=== PATIENT | female | born 1965 | race Caucasian/White ===

== ENCOUNTER → 2017-02-23 | Outpatient (CLI) | payer OTHER ==
--- NOTE | 2017-02-24 09:01 | MM ---
Reason for exam: screening (asymptomatic). Last mammogram was performed 2 years and 4 months ago. History: Patient is postmenopausal and had first child at age 30. Physical Findings: A clinical breast exam by your physician is recommended on an annual basis and results should be correlated with mammographic findings. MG Screening Mammo w CAD Bilateral CC and MLO view(s) were taken. Prior study comparison: November 06, 2014, bilateral MG screening mammo w CAD. The breast tissue is heterogeneously dense. This may lower the sensitivity of mammography. Benign calcifications. There is no discrete abnormality. No significant changes when compared with prior studies. ASSESSMENT: Benign, BI-RAD 2 RECOMMENDATION: Routine screening mammogram of both breasts in 1 year.
== END | disposition home or self-care (01) ==
LOC: RADMAMWWP 13:16
PROVIDERS: ATTEND Family Medicine
DX: Z12.31 Encounter for screening mammogram for malignant neoplasm of breast (principal)

== ENCOUNTER → 2020-10-15 | Outpatient (CLI) | payer BC, OTHER | END | disposition home or self-care (01) | LOC: LABWHC1 11:21 | PROVIDERS: ATTEND Nurse Practitioner | DX: Z20.828 Contact with and (suspected) exposure to other viral communicable diseases (principal) | CPT/HCPCS: U0003; C9803 ==

== ENCOUNTER → 2020-12-11 | Outpatient (CLI) | payer BC ==
--- NOTE | 2020-12-12 13:38 | MM ---
Reason for exam: screening (asymptomatic). Last mammogram was performed 3 years and 10 months ago. History: Patient is postmenopausal and had first child at age 30. Physical Findings: A clinical breast exam by your physician is recommended on an annual basis and results should be correlated with mammographic findings. MG Screening Mammo w CAD Bilateral CC and MLO view(s) were taken. Prior study comparison: February 23, 2017, bilateral MG screening mammo w CAD. November 06, 2014, bilateral MG screening mammo w CAD. The breast tissue is heterogeneously dense. This may lower the sensitivity of mammography. Finding: There are typically benign round, diffuse/scattered and grouped calcifications in both breasts. Asymmetric breast tissue left breast, stable. There is no discrete abnormality. ASSESSMENT: Benign, BI-RAD 2 RECOMMENDATION: Routine screening mammogram of both breasts in 1 year.
== END | disposition home or self-care (01) ==
LOC: RADMAMWWP 15:48
PROVIDERS: ATTEND Family Medicine
DX: Z12.31 Encounter for screening mammogram for malignant neoplasm of breast (principal)
CPT/HCPCS: 77067

== ENCOUNTER → 2022-05-18 | Outpatient (CLI) | payer BC ==
--- NOTE | 2022-05-19 13:33 | MM ---
Reason for Exam: Screening (asymptomatic). Last mammogram was performed 1 year(s) and 5 month(s) ago. Patient History: Menarche at age 10. First Full-Term at age 30. Late child-bearing (after 30). Postmenopausal. Risk Values: Rachael 5 year model risk: 1.8%. NCI Lifetime model risk: 10.5%. Prior Study Comparison: 11/06/2014 Bilateral Screening Mammogram, [facility]. 02/23/2017 Bilateral Screening Mammogram, [facility]. 12/11/2020 Bilateral Screening Mammogram, [facility]. Tissue Density: The breast tissue is heterogeneously dense. This may lower the sensitivity of mammography. Findings: Analyzed By CAD. There is a stable focal asymmetry with a couple of benign-appearing calcifications within the posterior left mediolateral oblique view. No suspicious groups of microcalcifications, spiculated or lobular masses, architectural distortion or other secondary signs of malignancy are mammographically apparent. Overall Assessment: Benign, BI-RAD 2 Management: Screening Mammogram of both breasts in 1 year. A negative mammogram report should not preclude additional follow up of suspicious palpable abnormalities. Patient should continue monthly self breast exam. A clinical breast exam by your physician is recommended on an annual basis and results should be correlated with mammographic findings. Electronically signed and approved by: Joey Claudio D.O. Radiologis
== END | disposition home or self-care (01) ==
LOC: RADMAMWWP 13:18
PROVIDERS: ATTEND Family Medicine
DX: Z12.31 Encounter for screening mammogram for malignant neoplasm of breast (principal); R92.1 Mammographic calcification found on diagnostic imaging of breast; Z78.0 Asymptomatic menopausal state
CPT/HCPCS: 77067

== ENCOUNTER 2024-04-28 13:58 | Day surgery (SDC) | payer BC ==
[2024-04-26 11:42] VITALS: BMI 27.8
[2024-04-28] MEDS: IV FLUID CONTINUATION 1,000 ML IV ONE (14:41)
[2024-04-28] MEDS: LACTATED RINGERS 1,000 ML IV SCH (14:47)
[2024-04-28 15:06] VITALS: TEMP 97
[2024-04-28] MEDS ORDERED: PROPOFOL 10 MG/ML 20 ML VIAL IV ONE (15:59)
--- NOTE | 2024-04-28 16:16 | P.PCN ---
Date of Procedure: 04/28/24 Procedure(s) Performed: BRIEF HISTORY: Patient is a 58-year-old pleasant female scheduled for an elective colonoscopy as a part of the patient by history of colon polyps. Last colonoscopy was 8 years ago. PROCEDURE PERFORMED: Colonoscopy with snare polypectomy PREOPERATIVE DIAGNOSIS: History of colon polyp. IV sedation per Anesthesia. PROCEDURE: After informed consent was obtained, the patient, was brought into the endoscopy unit. IV sedation was administered by Anesthesia under continuous monitoring. Digital rectal examination was normal. Initially the Olympus CF-160 flexible video colonoscope was then inserted in the rectum, gradually advanced into the cecum without any difficulty. Careful examination was performed as the scope was gradually being withdrawn. Ileocecal valve and the appendiceal orifice were visualized and appeared normal. Prep was excellent. Mucosa of the cecum, ascending colon, transverse colon, descending colon, normal. In the sigmoid there was a 7 mm polyp that was removed by cold snare polypectomy. Rest of the sigmoid colon, and rectum appeared normal. Retroflexion was performed in the rectum and no lesions were seen. The patient tolerated the procedure well. IMPRESSION: 7 millimeters sigmoid colon polyp status post cold snare polypectomy Rest of the colon appeared normal RECOMMENDATIONS: Findings of this examination were discussed with the patient present family. She was advised to follow-up with the biopsy results. If the biopsy reveals adenoma she can have repeat colonoscopy in 5 years..
[2024-04-28] MEDS: LABETALOL 5 MG/ML VIAL MDV IVP ONE (16:51)
[2024-04-28] MEDS: hydrALAZINE HCL 20 MG/ML 1 ML VIAL IVP PRN (17:29)
[2024-04-28] MEDS: hydrALAZINE HCL 20 MG/ML 1 ML VIAL IVP ONE (17:30)
[2024-04-28 18:15] VITALS: BP 156/93; PULSE 83; RESP 16
== END 2024-04-28 18:11 | disposition home or self-care (01) ==
LOC: ORWHC2ENDO 13:58
PROVIDERS: ATTEND Internal Medicine Gastroenterology
DX: K63.5 Polyp of colon (principal); E78.5 Hyperlipidemia, unspecified; J44.9 Chronic obstructive pulmonary disease, unspecified; F17.200 Nicotine dependence, unspecified, uncomplicated; Z86.010 Personal history of colon polyps; Z79.51 Long term (current) use of inhaled steroids; Z79.899 Other long term (current) drug therapy
CPT/HCPCS: 45385; J0360; J2704; J1920; 88305

== ENCOUNTER 2025-01-22 18:21 | Emergency (ER) | payer BC, OTHER ==
[2025-01-22 18:33] VITALS: TEMP 98.9
--- NOTE | 2025-01-22 19:35 | ED ---
Fall HPI - General Chief Complaint: Fall Stated Complaint: fall, [facility] Time Seen by Provider: 01/22/25 18:23 Source: patient, EMS, RN notes reviewed Mode of arrival: EMS Limitations: no limitations - History of Present Illness Initial Comments: This is a 59-year-old female who presents to the emergency department for a fall. Patient was at work and tripped on the carpet, causing her to fall. Denies hitting her head or taking any blood thinners. States that she injured her right knee and right shoulder. She was given Toradol en route by EMS with some improvement in pain. MD Complaint: fall - Related Data Home Medications Medication Instructions Recorded Confirmed Albuterol Inhaler [Ventolin 1 - 2 puff INHALATION Q4HR PRN 11/27/14 04/28/24 Inhaler] Atorvastatin [Lipitor] 20 mg PO HS 04/26/24 04/28/24 Cholecalciferol [Vitamin D3 (125 125 mcg PO HS 04/26/24 04/28/24 Mcg = 5000 Iu)] Multivitamins, Thera [Multivitamin 1 tab PO HS 04/26/24 04/28/24 (formulary)] Previous Rx's Medication Instructions Recorded Ketorolac [Toradol] 10 mg PO Q6HR PRN #15 tab 01/22/25 Allergies Allergy/AdvReac Type Severity Reaction Status Date / Time No Known Allergies Allergy Verified 01/22/25 18:33 Review of Systems ROS Statement: Those systems with pertinent positive or pertinent negative responses have been documented in the HPI. ROS Other: All systems not noted in ROS Statement are negative. Past Medical History Past Medical History: COPD, Hyperlipidemia Additional Past Medical History / Comment(s): HX PNEUMOTHORAX 2009, UNDIAG. COPD History of Any Multi-Drug Resistant Organisms: None Reported Past Surgical History: Tonsillectomy, Tubal Ligation Additional Past Surgical History / Comment(s): CHEST TUBE FOR PNEUMOTHORAX, EYE SX CHILD, COLONOSCOPY Past Anesthesia/Blood Transfusion Reactions: Postoperative Nausea & Vomiting (PONV) Past Psychological History: No Psychological Hx Reported Smoking Status: Current every day smoker - Past Family History Mother Family Medical History: No Reported History General Exam Limitations: no limitations General appearance: alert, in no apparent distress Head exam: Present: atraumatic, normocephalic, normal inspection Respiratory exam: Present: normal lung sounds bilaterally. Absent: respiratory distress, wheezes, rales, rhonchi, stridor Cardiovascular Exam: Present: regular rate, normal rhythm Extremities exam: Present: other (Tenderness to palpation of the right knee with mild overlying swelling. Range of motion limited by pain. 2+ DP and PT pulses. Mild tenderness of the right shoulder. Range of motion limited by pain. 2+ radial pulses) Neurological exam: Present: alert, oriented X3, CN II-XII intact Psychiatric exam: Present: normal affect, normal mood Skin exam: Present: warm, dry, intact, normal color. Absent: rash Course Vital Signs 01/22/25 18:31 Temperature 98.9 F Pulse Rate 83 Respiratory 16 Rate Blood Pressure 160/92 O2 Sat by Pulse 96 Oximetry Medical Decision Making - Medical Decision Making This is a 59 year old female who presents to the emergency department for a fall. Was pt. sent in by a medical professional or institution? @ -No Did you speak to anyone other than the patient for history? @ -No Did you review nursing and triage notes? @ -Yes, and I agree, it is accurate with regards to the patient's symptoms. Were old charts reviewed? @ -No Differential Diagnosis? @ -Differential Musculoskeletal Muscular strain, contusion, ligament sprain, fracture, arthritis, septic arthritis, bursitis, cellulitis, muscle spasm, nerve compression, DVT, arterial occlusion, herpes zoster, electrolyte abnormality, tumor.... This is not meant to be in all inclusive list EKG interpreted by me (3pts min.)? @ -Not obtained X-rays interpreted by me (1pt min.)? @ -X-ray of the right knee and right shoulder obtained. My interpretation identifies no acute fractures. CT interpreted by me (1pt min.)? @ -Not obtained U/S interpreted by me (1pt. min.)? @ -Not obtained What testing was considered but not performed? (CT, X-rays, U/S, labs)? Why? @ -None What meds were considered but not given? Why? @ -None Did you discuss the management of the patient with other professionals? @ -No Did you reconcile home meds? @ -No Was smoking cessation discussed for >3mins.? @ -No Was critical care preformed (if so, how long)? @ -No Were there social determinants of health that impacted care today? How? (Homelessness, low income, unemployed, alcoholism, drug addiction, transportation, low edu. Level, literacy, decrease access to med. care, group home, rehab)? @ -No Was there de-escalation of care discussed even if they declined? (Discuss DNR or withdrawal of care, Hospice)? @ -No What co-morbidities impacted this encounter? (DM, HTN, Smoking, COPD, CAD, Cancer, CVA, Hep., AIDS, mental health diagnosis, sleep apnea, morbid obesity)? @ -None Was patient admitted / discharged? @ -Discharged. X-ray of the right knee and right shoulder obtained revealing no acute process. Pain was managed in the emergency department. Knee im mobilizer applied to be used as needed. Toradol prescribed for further pain management. Advised ice and elevation as well. Patient discharged home in stable condition. Case discussed with ED attending Dr. Gillis. Return precautions reviewed in depth, the patient is instructed to return to the emergency department with any new, worsening, or concerning symptoms. Patient verbalized understanding. Undiagnosed new problem with uncertain prognosis? @ -None Drug Therapy requiring intensive monitoring for toxicity (Heparin, Nitro, Insulin, Cardizem)? @ -None Were any procedures done? @ -None Diagnosis/symptom? @ -Fall, right knee contusion, right shoulder contusion Acute, or Chronic, or Acute on Chronic? @ -Acute Uncomplicated (without systemic symptoms) or Complicated (systemic symptoms)? @ -Uncomplicated Side effects of treatment? @ -None Exacerbation, Progression, or Severe Exacerbation] @ -Not applicable Poses a threat to life or bodily function? @ -No - Radiology Data Radiology results: report reviewed, image reviewed Disposition Clinical Impression: Fall, Contusion of right knee, Right shoulder injury Disposition: HOME SELF-CARE Instructions (If sedation given, give patient instructions): Fall Prevention (ED), Knee Immobilizer (ED) Additional Instructions: Return to the emergency department with any new, worsening, or concerning symptoms. Take the Toradol with Tylenol as needed for pain relief. If you choose to take the Toradol, do not take any other anti-inflammatories such as ibuprofen, take one or the other. Apply ice and elevate the painful areas for the next couple of days as well. Follow up with your primary care provider in 1-2 days. Prescriptions: Ketorolac [Toradol] 10 mg PO Q6HR PRN #15 tab PRN Reason: Pain Is patient prescribed a controlled substance at d/c from ED?: No Referrals: Steph Chaparro MD [Primary Care Provider] - 1-2 days Time of Disposition: 23:16
[2025-01-22] MEDS: MORPHINE SULFATE 4 MG/ML SYRINGE IM STA (20:00)
[2025-01-22] MEDS: KETOROLAC 15 MG/ML 1 ML VIAL IM STA (21:57)
[2025-01-22] MEDS: ACETAMINOPHEN TAB 500 MG TAB PO STA (21:58)
--- NOTE | 2025-01-22 23:04 | XR ---
EXAMINATION TYPE: XR shoulder complete RT DATE OF EXAM: 01/22/2025 7:19 PM CLINICAL INDICATION:Female, 59 years old with history of Fall; PHH, pain COMPARISON: None. TECHNIQUE: XR shoulder complete RT; examined in AP, internally rotated and scapular Y projections. FINDINGS: No evidence of acute osseous pathology, joint dislocation, or soft tissue swelling. Degenerative haris nges of the right shoulder. External items are seen overlying the upper chest. The remaining portions of the visualized chest are unremarkable. IMPRESSION: No acute osseous pathology. [facility], , 01/22/2025 11:02 PM
--- NOTE | 2025-01-22 23:06 | XR ---
EXAMINATION TYPE: XR knee complete RT DATE OF EXAM: 01/22/2025 7:19 PM CLINICAL INDICATION:Female, 59 years old with history of Fall; PHH, pain COMPARISON: None. TECHNIQUE: XR knee complete RT; examined in Frontal, lateral and oblique projections. FINDINGS: No evidence of any acute osseous pathology, soft tissue swelling, or joint effusion is no shira. Minimal degenerative changes present IMPRESSION: No acute osseous pathology. [facility], , 01/22/2025 11:04 PM
[2025-01-23 00:06] VITALS: BP 149/90; PULSE 81; RESP 18
== END 2025-01-23 00:06 | disposition home or self-care (01) ==
LOC: EC 18:21
DX: S80.01XA Contusion of right knee, initial encounter (principal); S49.91XA Unspecified injury of right shoulder and upper arm, initial encounter; F17.200 Nicotine dependence, unspecified, uncomplicated; W19.XXXA Unspecified fall, initial encounter
CPT/HCPCS: 73030; 73562; 99284; 96374; L1830; J1885

== ENCOUNTER → 2025-03-28 | Outpatient (CLI) | payer BC ==
--- NOTE | 2025-03-28 09:21 | MM ---
Reason for Exam: Screening (asymptomatic). Last mammogram was performed 2 year(s) and 10 month(s) ago. Patient History: Menarche at age 10. First Full-Term at age 30. Late child-bearing (after 30). Postmenopausal. Risk Values: Rachael 5 year model risk: 2.0%. NCI Lifetime model risk: 9.7%. Prior Study Comparison: 02/23/2017 Bilateral Screening Mammogram, [facility]. 12/11/2020 Bilateral Screening Mammogram, [facility]. 05/18/2022 Bilateral MG screening mammo w CAD, [facility]. Tissue Density: The breasts are heterogeneously dense, which may obscure small masses. Findings: Analyzed By CAD. There are tiny benign round calcifications bilaterally redemonstrated. Benign-appearing vascular calcification in bilateral breasts is noted. Benign-appearing left axillary lymph nodes are redemonstrated. There is no suspicious new group of microcalcifications or new suspicious mass in either breast. Overall Assessment: Benign, BI-RAD 2 Management: Screening Mammogram of both breasts in 1 year. . Patient should continue monthly self-breast exams. A clinical breast exam by your physician is recommended on an annual basis. This exam should not preclude additional follow-up of suspicious palpable abnormalities. Note on Rachael scores and lifetime risk: 1. A Rachael score greater than 3% is considered moderate risk. If this is the case, consider specialist referral to assess eligibility for a risk reducing agent. 2. If overall lifetime risk for the development of breast cancer is 20% or higher, the patient may qualify for future screening with alternating mammogram and breast MRI. [facility], , 03/28/2025 9:18 AM. Electronically signed and approved by: Bartolome Shen M.D.
== END | disposition home or self-care (01) ==
LOC: RADMAMWWP 08:57
PROVIDERS: ATTEND Family Medicine
DX: Z12.31 Encounter for screening mammogram for malignant neoplasm of breast (principal); R92.333 Mammographic heterogeneous density, bilateral breasts; Z78.0 Asymptomatic menopausal state
CPT/HCPCS: 77067

== ENCOUNTER 2025-05-20 07:03 | Inpatient (IN) | payer BC ==
--- NOTE | 2025-05-20 07:51 | ED ---
General Adult HPI - General Chief complaint: Neuro Symptoms/Deficit Stated complaint: Leg/Arm Numbness Time Seen by Provider: 05/20/25 07:20 Source: patient, RN notes reviewed, old records reviewed Mode of arrival: ambulatory - History of Present Illness Initial comments: This is a 59-year-old female who presents to the emergency department stating that she is a drinker and smoker. Patient states she quit smoking about 2 weeks ago and has noticed some tingling in her fingers both hands and both feet. Patient states she may have not noticed in the past because she has been a drinker. Patient denies any weakness. Patient denies being off balance. Patient denies any fever chills or cough. Patient denies chest pain or difficulty breathing. Patient denies any abdominal pain patient has nausea vomiting diarrhea. Patient states she did see her physician back in October and was told her B12 levels were low and that she needed to follow-up with that but she has not yet followed up. Patient states she is still working and having no problems holding onto things or doing her job at work - Related Data Home Medications Medication Instructions Recorded Confirmed Albuterol Inhaler [Ventolin 2 puff INHALATION RT-Q4H PRN 11/27/14 05/20/25 Inhaler] Atorvastatin [Lipitor] 20 mg PO HS 04/26/24 05/20/25 Cholecalciferol [Vitamin D3 (125 125 mcg PO HS 04/26/24 05/20/25 Mcg = 5000 Iu)] Multivitamins, Thera [Multivitamin 1 tab PO DAILY 04/26/24 05/20/25 (formulary)] Budesonide/Formoterol Fumarate 2 puff INHALATION RT-BID 05/20/25 05/20/25 [Symbicort 160-4.5 Mcg Inhaler] Furosemide [Lasix] 20 mg PO DAILY PRN 05/20/25 05/20/25 Allergies Allergy/AdvReac Type Severity Reaction Status Date / Time No Known Allergies Allergy Verified 05/20/25 09:44 Review of Systems ROS Statement: Those systems with pertinent positive or pertinent negative responses have been documented in the HPI. ROS Other: All systems not noted in ROS Statement are negative. Past Medical History Past Medical History: COPD, Hyperlipidemia Additional Past Medical History / Comment(s): HX PNEUMOTHORAX 2010, UNDIAG. COPD History of Any Multi-Drug Resistant Organisms: None Reported Past Surgical History: Tonsillectomy, Tubal Ligation Additional Past Surgical History / Comment(s): CHEST TUBE FOR PNEUMOTHORAX, EYE SX CHILD, COLONOSCOPY Past Anesthesia/Blood Transfusion Reactions: Postoperative Nausea & Vomiting (PONV) Past Psychological History: No Psychological Hx Reported Smoking Status: Current every day smoker - Past Family History Mother Family Medical History: No Reported History General Exam - General Exam Comments Initial Comments: GENERAL: Patient is well-developed and well-nourished. Patient is nontoxic and well- hydrated and is in no acute distress. ENT: Neck is soft and supple. No significant lymphadenopathy is noted. Oropharynx is clear. Moist mucous membranes. Neck has full range of motion without eliciting any pain. EYES: The sclera were anicteric and conjunctiva were pink and moist. Extraocular movements were intact and pupils were equal round and reactive to light. Eyelids were unremarkable. PULMONARY: Unlabored respirations. Good breath sounds bilaterally. No audible rales rhonchi or wheezing was noted. CARDIOVASCULAR: There is a regular rate and rhythm without any murmurs gallops or rubs. ABDOMEN: Soft and nontender with normal bowel sounds. No palpable organomegaly was noted. There is no palpable pulsatile mass. SKIN: Skin is clear with no lesions or rashes and otherwise unremarkable. NEUROLOGIC: Patient is alert and oriented x3. Cranial nerves II through XII are grossly intact. Motor and sensory are also intact. Normal speech, volume and content. Patient has an NIH of 0 MUSCULOSKELETAL: Normal extremities with adequate strength and full range of motion. No lower extremity swelling or edema. No calf tenderness. LYMPHATICS: No significant lymphadenopathy is noted PSYCHIATRIC: Normal psychiatric evaluation. Course Vital Signs 05/20/25 05/20/25 05/20/25 07:19 08:15 09:44 Temperature 97.9 F Pulse Rate 92 77 Respiratory 22 17 19 Rate Blood Pressure 131/84 129/88 O2 Sat by Pulse 93 L 95 Oximetry Medical Decision Making - Medical Decision Making EKG is interpreted by myself. EKG shows a sinus rhythm at 75 bpm [place] of 136 QRS is 98 QT interval is 364 QTc is 392. Patient's EKG shows no ST segment ovation or depression. Was pt. sent in by a medical professional or institution (, PA, SENIOR NETWORK SECURITY ENGINEER, urgent care, hospital, or fdc...) When possible be specific @ -No Did you speak to anyone other than the patient for history (EMS, parent, family, police, friend...)? What history was obtained from this source @ -No Did you review nursing and triage notes (agree or disagree)? Why? @ -I reviewed and agree with nursing and triage notes Were old charts reviewed (outside hosp., previous admission, EMS record, old EKG, old radiological studies, urgent care reports/EKG's, fdc records)? Report findings @ -No old charts were reviewed Differential Diagnosis? @ -Paresthesias, electrolyte abnormality, CVA, this is not an all-inclusive list EKG interpreted by me (3pts min.). @ -As above X-rays interpreted by me (1pt min.). @ -None done CT interpreted by me (1pt min.). @ -None done U/S interpreted by me (1pt. min.). @ -None done What testing was considered but not performed or refused? (CT, X-rays, U/S, labs)? Why? @ -None What meds were considered but not given or refused? Why? @ -None Did you discuss the management of the patient with other professionals (prof essionals i.e. , PA, SENIOR NETWORK SECURITY ENGINEER, lab, RT, psych nurse, social work professor, ground defence officer, teacher, military source operations officer, onsite case manager)? Give summary @ -I spoke with Dr. Weston he agreed to admit the patient admit the patient wrote admitting orders Was smoking cessation discussed for >3mins.? @ -No Was critical care preformed (if so, how long)? @ -35 minutes Were there social determinants of health that impacted care today? How? (Homelessness, low income, unemployed, alcoholism, drug addiction, transportation, low edu. Level, literacy, decrease access to med. care, intermediate, rehab)? @ -No Was there de-escalation of care discussed even if they declined (Discuss DNR or withdrawal of care, Hospice)? DNR status @ -No What co-morbidities impacted this encounter? (DM, HTN, Smoking, COPD, CAD, Cancer, CVA, ARF, Chemo, Hep., AIDS, mental health diagnosis, sleep apnea, morbid obesity)? @ -None Was patient admitted / discharged? Hospital course, mention meds given and route, prescriptions, significant lab abnormalities, going to OR and other pertinent info. @ -Patient's sodium was 128 she did receive a bolus of normal saline of 500 cc. Patient also had a potassium of 2.0 patient did receive oral potassium as well as IV potassium. Patient also had a magnesium of 1.2 and did receive 2 g of magnesium sulfate. I spoke with Dr. Weston he agreed admit the patient admit the patient wrote admitting orders Undiagnosed new problem with uncertain prognosis? @ -No Drug Therapy requiring intensive monitoring for toxicity (Heparin, Nitro, Insulin, Cardizem)? @ -No Were any procedures done? @ -No Diagnosis/symptom? @ -Hyponatremia Acute, or Chronic, or Acute on Chronic? @ -Acute Uncomplicated (without systemic symptoms) or Complicated (systemic symptoms)? @ -Complicated Side effects of treatment? @ -No Exacerbation, Progression, or Severe Exacerbation? @ -No Poses a threat to life or bodily function? How? (Chest pain, USA, ND, pneumonia, PE, COPD, DKA, ARF, appy, cholecystitis, CVA, Diverticulitis, Homicidal, Suici yuly, threat to staff... and all critical care pts) @ -Yes this could lead to weakness and possible seizures Diagnosis/symptom? @ -Hypomagnesemia Acute, or Chronic, or Acute on Chronic? @ -Acute Uncomplicated (without systemic symptoms) or Complicated (systemic symptoms)? @ -Complicated Side effects of treatment? @ -None Exacerbation, Progression, or Severe Exacerbation] @ -No Poses a threat to life or bodily function? @ -No Diagnosis/symptom? @ -Hypokalemia Acute, or Chronic, or Acute on Chronic? @ -Acute Uncomplicated (without systemic symptoms) or Complicated (systemic symptoms)? @ -Complicated Side effects of treatment? @ -None Exacerbation, Progression, or Severe Exacerbation] @ -No Poses a threat to life or bodily function? @ -Yes this can lead to arrhythmias and - Lab Data Result diagrams: 05/20/25 08:03 05/20/25 08:03 Lab Results 05/20/25 05/20/25 Range/Units 08:03 08:03 WBC 4.94 (4.50-10.00) 10*3/uL RBC 3.28 L (4.10-5.20) 10*6/uL Hgb 12.2 (12.0-15.0) g/dL Hct 33.5 L (37.2-46.3) % MCV 102.1 H (80.0-97.0) fL MCH 37.2 H (27.0-32.0) pg MCHC 36.4 (32.0-37.0) g/dL Plt Count 174 (140-440) 10*3/uL MPV 10.4 (9.5-12.2) fL Immature Gran % (Auto) 0.2 % Neutrophils % 66.0 % Lymphocytes % 22.3 % Monocytes % 10.1 % Eosinophils % 1.0 % Basophils % 0.4 % Immature Gran # 0.01 (0.00-0.04) 10*3/uL Neutrophils # 3.26 (1.80-7.70) 10*3/uL Lymphocytes # 1.10 (0.90-5.00) 10*3/uL Monocytes # 0.50 (0.20-1.00) 10*3/uL Eosinophils # 0.05 (0.04-0.35) 10*3/uL Basophils # 0.02 (0.00-0.10) 10*3/uL Manual Slide Review Performed Sodium 128 L (137-145) mmol/L Potassium 2.0 L* (3.5-5.1) mmol/L Chloride 88 L (98-107) mmol/L Carbon Dioxide 35 H (22-30) mmol/L Anion Gap 5 mmol/L BUN 10 (7-17) mg/dL Creatinine 0.80 (0.52-1.04) mg/dL Est GFR (CKD-EPI)AfAm >90 (>60 ml/min/1.73 sqM) Est GFR (CKD-EPI)NonAf 80 (>60 ml/min/1.73 sqM) Glucose 111 H (74-99) mg/dL Calcium 7.3 L (8.4-10.2) mg/dL Magnesium 1.2 L (1.6-2.3) mg/dL Total Bilirubin 0.6 (0.2-1.3) mg/dL AST 115 H (14-36) U/L ALT 36 H (4-34) U/L Alkaline Phosphatase 91 (38-126) U/L Total Protein 4.7 L (6.3-8.2) g/dL Albumin 2.6 L (3.5-5.0) g/dL Disposition Clinical Impression: Hyponatremia, Hypomagnesemia, Hypokalemia Disposition: ADMITTED IP TO THIS [facility] Time of Disposition: 09:07
[2025-05-20 08:17] LABS: Basophils # (A) 0.02 10*3/uL (0.00-0.10); Basophils % (A) 0.4 %; Eosinophils # (A) 0.05 10*3/uL (0.04-0.35); HCT 33.5 % (37.2-46.3); HGB 12.2 g/dL (12.0-15.0); Lymphocytes % (A) 22.3 %; MCH 37.2 pg (27.0-32.0); MCHC 36.4 g/dL (32.0-37.0); MCV 102.1 fL (80.0-97.0); Mean Platelet Volume 10.4 fL (9.5-12.2); Monocytes % (A) 10.1 %; Neutrophils # (A) 3.26 10*3/uL (1.80-7.70); Platelet Count 174 10*3/uL (140-440); RBC 3.28 10*6/uL (4.10-5.20); RDW 14.1 % (11.5-14.5); WBC 4.94 10*3/uL (4.50-10.00)
[2025-05-20 08:24] LABS: ALT 36 U/L (4-34); AST 115 U/L (14-36); African American GFR (CKD) >90 (>60 ml/min/1.73 sqM); Albumin 2.6 g/dL (3.5-5.0); Alkaline Phosphatase 91 U/L (38-126); Anion Gap 5 mmol/L; Blood Urea Nitrogen 10 mg/dL (7-17); Calcium 7.3 mg/dL (8.4-10.2); Carbon Dioxide 35 mmol/L (22-30); Chloride 88 mmol/L (98-107); Glucose 111 mg/dL (74-99); Magnesium 1.2 mg/dL (1.6-2.3); Non-African American GFR(CKD) 80 (>60 ml/min/1.73 sqM); Sodium 128 mmol/L (137-145); Total Bilirubin 0.6 mg/dL (0.2-1.3); Total Protein 4.7 g/dL (6.3-8.2)
[2025-05-20] MEDS: SODIUM CHLORIDE 0.9% 1,000 ML IV ONE (09:28)
[2025-05-20] MEDS: POTASSIUM CHLORIDE 20 MEQ in WATER FOR INJECTION 1 100ML.BAG IVPB STA (09:28)
[2025-05-20] MEDS: SODIUM CHLORIDE 0.9% 500 ML 500 ML IV ONE (09:28)
[2025-05-20] MEDS: POTASSIUM CHLORIDE ER 20 MEQ TAB.ER PO STA ×3 (09:29→23:26)
[2025-05-20] MEDS: MAGNESIUM SULFATE-D5W PMX 1 GM in DEXTROSE/WATER 1 100ML.BAG IVPB SCH (09:42)
[2025-05-20 10:22] LABS: ALT 36 U/L (4-34); AST 120 U/L (14-36); African American GFR (CKD) >90 (>60 ml/min/1.73 sqM); Albumin 2.7 g/dL (3.5-5.0); Alcohol <10 mg/dL; Alkaline Phosphatase 87 U/L (38-126); Anion Gap 5 mmol/L; Blood Urea Nitrogen 9 mg/dL (7-17); Calcium 7.2 mg/dL (8.4-10.2); Carbon Dioxide 39 mmol/L (22-30); Chloride 88 mmol/L (98-107); Glucose 88 mg/dL (74-99); Non-African American GFR(CKD) 84 (>60 ml/min/1.73 sqM); Sodium 132 mmol/L (137-145); Total Bilirubin 0.7 mg/dL (0.2-1.3); Total Protein 4.9 g/dL (6.3-8.2)
[2025-05-20 10:29] LABS: Potassium 2.2 mmol/L (3.5-5.1)
[2025-05-20] MEDS ORDERED: ALBUTEROL NEBULIZED 2.5 MG/3 ML INHALATION PRN (10:34)
--- NOTE | 2025-05-20 10:36 | P.HPIM ---
History of Present Illness H&P Date: 05/20/25 Dolores Verma is a 59-year-old female patient of Dr. Soria who presented to the ER with concerns of tingling in bilateral hands and feet. Patient has known history of EtOH and in which she states she drank 1 beer per day but stopped 2 weeks ago. Denies any other neurological symptoms. Denies any recent illness. Lab work completed in ER showing sodium level of 128, potassium 2.0, creatinine 0.80, bun 10, magnesium 1.2, calcium 7.3. AST 36, ALT 115 serum alcohol negative. Current vital signs temp 97.9, heart rate 92, respiratory rate 22, blood pressure 131/84 with pulse ox 95% on room air. At this time patient will be admitted magnesium and potassium replace per protocol continue IV fluids. Nephrology services will be consulted. Repeat labs. Patient denies chest pain or shortness of breath. Patient denies nausea vomiting or diarrhea. Patient denies any urinary burning or frequency Review of Systems Please refer to HPI otherwise unremarkable Past Medical History Past Medical History: COPD, Hyperlipidemia Additional Past Medical History / Comment(s): HX PNEUMOTHORAX 2009, UNDIAG. COPD History of Any Multi-Drug Resistant Organisms: None Reported Past Surgical History: Tonsillectomy, Tubal Ligation Additional Past Surgical History / Comment(s): CHEST TUBE FOR PNEUMOTHORAX, EYE SX CHILD, COLONOSCOPY Past Anesthesia/Blood Transfusion Reactions: Postoperative Nausea & Vomiting (PONV) Past Psychological History: No Psychological Hx Reported Smoking Status: Current every day smoker - Past Family History Mother Family Medical History: No Reported History Medications and Allergies Home Medications Medication Instructions Recorded Confirmed Type Albuterol Inhaler [Ventolin 2 puff INHALATION RT-Q4H PRN 11/27/14 05/20/25 History Inhaler] Atorvastatin [Lipitor] 20 mg PO HS 04/26/24 05/20/25 History Cholecalciferol [Vitamin D3 (125 125 mcg PO HS 04/26/24 05/20/25 History Mcg = 5000 Iu)] Multivitamins, Thera [Multivitamin 1 tab PO DAILY 04/26/24 05/20/25 History (formulary)] Budesonide/Formoterol Fumarate 2 puff INHALATION RT-BID 05/20/25 05/20/25 History [Symbicort 160-4.5 Mcg Inhaler] Furosemide [Lasix] 20 mg PO DAILY PRN 05/20/25 05/20/25 History Allergies Allergy/AdvReac Type Severity Reaction Status Date / Time No Known Allergies Allergy Verified 05/20/25 09:44 Physical Exam Vitals: Vital Signs Temp Pulse Resp BP Pulse Ox 05/20/25 09:44 77 19 129/88 95 05/20/25 08:15 17 05/20/25 07:19 97.9 F 92 22 131/84 93 L Intake and Output 05/19/25 05/20/25 05/20/25 22:59 06:59 14:59 Other: Weight 62.596 kg Head normocephalic Neck supple Lungs clear to auscultation bilaterally no wheezing or crackles Heart regular rate and rhythm S1-S2, no rub or gallop Abdomen is soft nontender nondistended positive bowel sounds no hep atosplenomegaly Extremities no edema Neuro alert and orientated to 3 Results CBC & Chem 7: 05/20/25 08:03 05/20/25 08:03 Labs: Abnormal Lab Results - Last 24 Hours (Table) 05/20/25 05/20/25 Range/Units 08:03 08:03 RBC 3.28 L (4.10-5.20) 10*6/uL Hct 33.5 L (37.2-46.3) % MCV 102.1 H (80.0-97.0) fL MCH 37.2 H (27.0-32.0) pg Sodium 128 L (137-145) mmol/L Potassium 2.0 L* (3.5-5.1) mmol/L Chloride 88 L (98-107) mmol/L Carbon Dioxide 35 H (22-30) mmol/L Glucose 111 H (74-99) mg/dL Calcium 7.3 L (8.4-10.2) mg/dL Magnesium 1.2 L (1.6-2.3) mg/dL AST 115 H (14-36) U/L ALT 36 H (4-34) U/L Total Protein 4.7 L (6.3-8.2) g/dL Albumin 2.6 L (3.5-5.0) g/dL Assessment and Plan Assessment: Numbness to bilateral hands likely secondary from electrolyte imbalance Hyponatremia Hypokalemia Hypomagnesemia EtOH history. Patient reports she used to drink 1. Beer per day but quit 2 weeks ago Ongoing nicotine dependence. Patient educated greater than 3 minutes on the importance of complete smoking sensation Elevated liver enzymes History of COPD no exacerbation at this time History of hyperlipidemia DVT prophylaxis Lovenox. GI prophylax Protonix nephrology services consulted Continue electrolyte replacement Repeat labs ordered Time with Patient: Greater than 30 (Greater than 60% of the total time spent in counseling and coordination of care)
--- NOTE | 2025-05-20 12:48 | P.NPCON ---
History of Present Illness - Reason for Consult hypokalemia - History of Present Illness Reason for consultation: Electrolyte imbalance History of present illness: Patient is a 59-year-old female seen in renal consultation for electrolyte imbalance. Patient states she actively smokes daily but quit drinking alcohol about 2 weeks ago. About 3 days ago she developed numbness and tingling in her extremities, mostly in her hands and came to the hospital for further evaluation. She denies vomiting or diarrhea. States oral intake has been fair. Patient states she was started on Lasix recently due to edema in the lower extremities and has taken 5 doses so far. She admits to good urine output. Denies any gross hematuria or dysuria. No chest pain or shortness of breath. Denies use of nonsteroidals. Potassium was noted to be 2.0 on admission and repeat was 2.2. Magnesium was low at 1.2. Serum alcohol level was negative. She denies use of any IV drugs. Denies history of diabetes or coronary artery disease. Vital signs are stable. General: T no acute distress. HEENT: Head exam is unremarkable. LUNGS: No audible rhonchi or wheezes. HEART: Rate and Rhythm are regular. ABDOMEN: Nontender. EXTREMITITES: No edema. Past Medical History Past Medical History: COPD, Hyperlipidemia Additional Past Medical History / Comment(s): HX PNEUMOTHORAX 2009, UNDIAG. COPD History of Any Multi-Drug Resistant Organisms: None Reported Past Surgical History: Tonsillectomy, Tubal Ligation Additional Past Surgical History / Comment(s): CHEST TUBE FOR PNEUMOTHORAX, EYE SX CHILD, COLONOSCOPY Past Anesthesia/Blood Transfusion Reactions: Postoperative Nausea & Vomiting (PONV) Past Psychological History: No Psychological Hx Reported Smoking Status: Current every day smoker - Past Family History Mother Family Medical History: No Reported History Medications and Allergies Home Medications Medication Instructions Recorded Confirmed Type Albuterol Inhaler [Ventolin 2 puff INHALATION RT-Q4H PRN 11/27/14 05/20/25 History Inhaler] Atorvastatin [Lipitor] 20 mg PO HS 04/26/24 05/20/25 History Cholecalciferol [Vitamin D3 (125 125 mcg PO HS 04/26/24 05/20/25 History Mcg = 5000 Iu)] Multivitamins, Thera [Multivitamin 1 tab PO DAILY 04/26/24 05/20/25 History (formulary)] Budesonide/Formoterol Fumarate 2 puff INHALATION RT-BID 05/20/25 05/20/25 History [Symbicort 160-4.5 Mcg Inhaler] Furosemide [Lasix] 20 mg PO DAILY PRN 05/20/25 05/20/25 History Allergies Allergy/AdvReac Type Severity Reaction Status Date / Time No Known Allergies Allergy Verified 05/20/25 09:44 Physical Exam Vitals: Vital Signs Temp Pulse Resp BP Pulse Ox 05/20/25 09:44 77 19 129/88 95 05/20/25 08:15 17 05/20/25 07:19 97.9 F 92 22 131/84 93 L Intake and Output 05/19/25 05/20/25 05/20/25 22:59 06:59 14:59 Other: Weight 62.596 kg Results - Lab Results Most recent lab results Calcium 7.2 mg/dL (8.4-10.2) L 05/20/25 09:44 Magnesium 1.2 mg/dL (1.6-2.3) L 05/20/25 08:03 05/20/25 08:03 05/20/25 09:44 Assessment and Plan Plan: Assessment: 1. Hypokalemia from recently started diuretics and hypomagnesemia. Furthermore patient has alkalotic and hypochloremic which will maintain the hypokalemia. 2. Hypomagnesemia from diuretic use. 3. Metabolic alkalosis from volume contraction. 4. Tobacco abuse. 5. Hypovolemic hyponatremia, better with fluids. Plan: Maintain normal saline. Magnesium being replaced. Replace over 6 to 8 hours. Potassium being replaced orally and via IV. Repeat potassium level this evening and continue replacing as needed. Hold diuretics. Thank you for the consultation. I will continue to follow the patient with you during her hospital stay.
[2025-05-20] MEDS: MAGNESIUM SULFATE-D5W PMX 1 GM in DEXTROSE/WATER 1 100ML.BAG IVPB ONE (13:08)
[2025-05-20] MEDS: POTASSIUM CHLORIDE 20 MEQ in WATER FOR INJECTION 1 100ML.BAG IVPB SCH (13:15)
[2025-05-20 13:41] LABS: ALT 35 U/L (4-34); AST 109 U/L (14-36); African American GFR (CKD) >90 (>60 ml/min/1.73 sqM); Albumin 2.3 g/dL (3.5-5.0); Alkaline Phosphatase 78 U/L (38-126); Anion Gap 6 mmol/L; Blood Urea Nitrogen 8 mg/dL (7-17); Calcium 7.2 mg/dL (8.4-10.2); Carbon Dioxide 32 mmol/L (22-30); Chloride 91 mmol/L (98-107); Glucose 106 mg/dL (74-99); Non-African American GFR(CKD) >90 (>60 ml/min/1.73 sqM); Sodium 129 mmol/L (137-145); Total Bilirubin 0.7 mg/dL (0.2-1.3); Total Protein 4.3 g/dL (6.3-8.2)
[2025-05-20 14:00] LABS: Potassium 2.7 mmol/L (3.5-5.1)
[2025-05-20 18:48] LABS: ALT 35 U/L (4-34); AST 118 U/L (14-36); African American GFR (CKD) >90 (>60 ml/min/1.73 sqM); Albumin 2.2 g/dL (3.5-5.0); Alkaline Phosphatase 81 U/L (38-126); Anion Gap 4 mmol/L; Blood Urea Nitrogen 7 mg/dL (7-17); Calcium 7.3 mg/dL (8.4-10.2); Carbon Dioxide 34 mmol/L (22-30); Chloride 93 mmol/L (98-107); Glucose 115 mg/dL (74-99); Non-African American GFR(CKD) >90 (>60 ml/min/1.73 sqM); Potassium 3.1 mmol/L (3.5-5.1); Sodium 131 mmol/L (137-145); Total Bilirubin 0.5 mg/dL (0.2-1.3); Total Protein 4.3 g/dL (6.3-8.2)
[2025-05-20] MEDS: SYMBICORT 160-4.5 MCG INHALER INHALATION SCH (20:30)
[2025-05-20] MEDS: CHOLECALCIFEROL 125 MCG (5000 IU) TABLET PO SCH (20:41)
[2025-05-20] MEDS ORDERED: Potassium Replacement Protocol 1 EACH MISC MISCELLANE PRN (22:12)
[2025-05-21 06:43] LABS: Basophils # (A) 0.04 10*3/uL (0.00-0.10); Basophils % (A) 0.7 %; Eosinophils # (A) 0.12 10*3/uL (0.04-0.35); Eosinophils % (A) 2.1 %; HGB 11.4 g/dL (12.0-15.0); Lymphocytes # (A) 1.31 10*3/uL (0.90-5.00); MCH 36.2 pg (27.0-32.0); MCHC 33.5 g/dL (32.0-37.0); Mean Platelet Volume 10.5 fL (9.5-12.2); Monocytes # (A) 0.48 10*3/uL (0.20-1.00); Monocytes % (A) 8.4 %; Neutrophils # (A) 3.72 10*3/uL (1.80-7.70); Neutrophils % (A) 65.3 %; Platelet Count 163 10*3/uL (140-440); RBC 3.15 10*6/uL (4.10-5.20); RDW 14.5 % (11.5-14.5)
[2025-05-21 06:47] LABS: MCV 107.9 fL (80.0-97.0)
[2025-05-21 07:09] LABS: ALT 41 U/L (4-34); AST 141 U/L (14-36); African American GFR (CKD) >90 (>60 ml/min/1.73 sqM); Albumin 2.2 g/dL (3.5-5.0); Alkaline Phosphatase 83 U/L (38-126); Anion Gap 3 mmol/L; Blood Urea Nitrogen 7 mg/dL (7-17); Calcium 7.6 mg/dL (8.4-10.2); Carbon Dioxide 31 mmol/L (22-30); Chloride 99 mmol/L (98-107); Glucose 102 mg/dL (74-99); Magnesium 2.2 mg/dL (1.6-2.3); Non-African American GFR(CKD) >90 (>60 ml/min/1.73 sqM); Potassium 3.9 mmol/L (3.5-5.1); Sodium 133 mmol/L (137-145); Total Bilirubin 0.4 mg/dL (0.2-1.3); Total Protein 4.3 g/dL (6.3-8.2)
[2025-05-21] MEDS: ENOXAPARIN 40 MG/0.4 ML SYRINGE SQ SCH (08:21)
[2025-05-21] MEDS: NICOTINE 14MG/24HR PATCH TRANSDERM SCH (08:25)
[2025-05-21] MEDS: PANTOPRAZOLE 40 MG TABLET PO SCH (08:26)
[2025-05-21] MEDS: MULTIVITAMINS, THERA 1 EACH TAB PO SCH (16:58)
--- NOTE | 2025-05-21 17:41 | P.PN ---
Subjective Progress Note Date: 05/21/25 Dolores Verma is a 59-year-old female patient of Dr. Soria who presented to the ER with concerns of tingling in bilateral hands and feet. Patient has known history of EtOH and in which she states she drank 1 beer per day but stopped 2 weeks ago. Denies any other neurological symptoms. Denies any recent illness. Lab work completed in ER showing sodium level of 128, potassium 2.0, creatinine 0.80, bun 10, magnesium 1.2, calcium 7.3. AST 36, ALT 115 serum alcohol negative. Current vital signs temp 97.9, heart rate 92, respiratory rate 22, blood pressure 131/84 with pulse ox 95% on room air. At this time patient will be admitted magnesium and potassium replace per protocol continue IV fluids. Nephrology services will be consulted. Repeat labs. Patient denies chest pain or shortness of breath. Patient denies nausea vomiting or diarrhea. Patient denies any urinary burning or frequency On 05/21/2025 patient was seen and examined on the medical floor she is alert and oriented x 3 in no apparent distress she is still complaining of tingling in her hands and feet otherwise she denies any complaints there is no fever or chills no headache or dizziness no chest pain no shortness of breath no cough no nausea or vomiting no abdominal pain no diarrhea and no urinary symptoms on admission patient had severe electrolyte imbalance with potassium at 2 sodium 128 and magnesium 1.2. Electrolytes are being corrected possible discharge to home tomorrow Objective - Vital Signs Vital signs: Vital Signs Temp 97.9 F 05/20/25 07:19 Pulse 98 05/21/25 08:00 Resp 20 05/21/25 08:00 BP 129/94 05/21/25 08:00 Pulse Ox 91 L 05/21/25 08:00 FiO2 Intake & Output 05/20/25 05/21/25 05/21/25 18:59 06:59 18:59 Weight 62.596 kg - Exam In general patient is alert and oriented x 3 in no distress HEENT head normocephalic and atraumatic Neck is supple no JVD no goiter no lymphadenopathy no carotid bruit Chest examination is clear to auscultation no crackles no wheezing Cardiac exam reveals regular heart sounds S1 and S2 no gallops no murmurs Abdomen is soft nontender no organomegaly with normal bowel sounds Extremity exam reveals no edema no cyanosis or clubbing Neurological examination reveals no gross focal deficits - Labs CBC & Chem 7: 05/21/25 06:17 05/21/25 06:17 Labs: Abnormal Lab Results - Last 24 Hours (Table) 05/20/25 05/20/25 05/20/25 Range/Units 09:44 12:36 18:18 RBC (4.10-5.20) 10*6/uL Hgb (12.0-15.0) g/dL Hct (37.2-46.3) % MCV (80.0-97.0) fL MCH (27.0-32.0) pg Sodium 132 L 129 L 131 L (137-145) mmol/L Potassium 2.2 L* 2.7 L* 3.1 L (3.5-5.1) mmol/L Chloride 88 L 91 L 93 L (98-107) mmol/L Carbon Dioxide 39 H 32 H 34 H (22-30) mmol/L Glucose 106 H 115 H (74-99) mg/dL Calcium 7.2 L 7.2 L 7.3 L (8.4-10.2) mg/dL Magnesium (1.6-2.3) mg/dL AST 120 H 109 H 118 H (14-36) U/L ALT 36 H 35 H 35 H (4-34) U/L Total Protein 4.9 L 4.3 L 4.3 L (6.3-8.2) g/dL Albumin 2.7 L 2.3 L 2.2 L (3.5-5.0) g/dL 05/20/25 05/21/25 05/21/25 Range/Units 18:18 06:17 06:17 RBC 3.15 L (4.10-5.20) 10*6/uL Hgb 11.4 L (12.0-15.0) g/dL Hct 34.0 L (37.2-46.3) % MCV 107.9 H D (80.0-97.0) fL MCH 36.2 H (27.0-32.0) pg Sodium 133 L (137-145) mmol/L Potassium (3.5-5.1) mmol/L Chloride (98-107) mmol/L Carbon Dioxide 31 H (22-30) mmol/L Glucose 102 H (74-99) mg/dL Calcium 7.6 L (8.4-10.2) mg/dL Magnesium 2.4 H (1.6-2.3) mg/dL AST 141 H (14-36) U/L ALT 41 H (4-34) U/L Total Protein 4.3 L (6.3-8.2) g/dL Albumin 2.2 L (3.5-5.0) g/dL Assessment and Plan Plan: Numbness to bilateral hands likely secondary from electrolyte imbalance Hyponatremia Hypokalemia Hypomagnesemia EtOH history. Patient reports she used to drink 1. Beer per day but quit 2 weeks ago Ongoing nicotine dependence. Patient educated greater than 3 minutes on the importance of complete smoking sensation Elevated liver enzymes History of COPD no exacerbation at this time History of hyperlipidemia DVT prophylaxis Lovenox. GI prophylax Protonix nephrology services consulted Continue electrolyte replacement Repeat labs ordered
--- NOTE | 2025-05-21 18:23 | P.PN ---
Subjective Patient is seen for follow-up for hypokalemia and hypomagnesemia. Electrolytes have been replaced Overall feeling better. Maintained on IV fluids. 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 - Labs CBC & Chem 7: 05/21/25 06:17 05/21/25 06:17 Labs: Abnormal Lab Results - Last 24 Hours (Table) 05/20/25 05/20/25 05/21/25 Range/Units 18:18 18:18 06:17 RBC 3.15 L (4.10-5.20) 10*6/uL Hgb 11.4 L (12.0-15.0) g/dL Hct 34.0 L (37.2-46.3) % MCV 107.9 H D (80.0-97.0) fL MCH 36.2 H (27.0-32.0) pg Sodium 131 L (137-145) mmol/L Potassium 3.1 L (3.5-5.1) mmol/L Chloride 93 L (98-107) mmol/L Carbon Dioxide 34 H (22-30) mmol/L Glucose 115 H (74-99) mg/dL Calcium 7.3 L (8.4-10.2) mg/dL Magnesium 2.4 H (1.6-2.3) mg/dL AST 118 H (14-36) U/L ALT 35 H (4-34) U/L Total Protein 4.3 L (6.3-8.2) g/dL Albumin 2.2 L (3.5-5.0) g/dL 05/21/25 Range/Units 06:17 RBC (4.10-5.20) 10*6/uL Hgb (12.0-15.0) g/dL Hct (37.2-46.3) % MCV (80.0-97.0) fL MCH (27.0-32.0) pg Sodium 133 L (137-145) mmol/L Potassium (3.5-5.1) mmol/L Chloride (98-107) mmol/L Carbon Dioxide 31 H (22-30) mmol/L Glucose 102 H (74-99) mg/dL Calcium 7.6 L (8.4-10.2) mg/dL Magnesium (1.6-2.3) mg/dL AST 141 H (14-36) U/L ALT 41 H (4-34) U/L Total Protein 4.3 L (6.3-8.2) g/dL Albumin 2.2 L (3.5-5.0) g/dL Assessment and Plan Assessment: 1. Hypokalemia from recently started diuretics and hypomagnesemia. Furthermore patient has alkalotic and hypochloremic which will maintain the hypokalemia. 2. Hypomagnesemia from diuretic use. 3. Metabolic alkalosis from volume contraction. 4. Tobacco abuse. 5. Hypovolemic hyponatremia, better with fluids. Plan: Continue to encourage increased oral intake May continue with IV fluids Repeat labs in a.m.
[2025-05-21] MEDS: ATORVASTATIN 20 MG TAB PO SCH (21:16)
[2025-05-22] MEDS ORDERED: PNEUMOCOCCAL VACC-PREVNAR-20 0.5 ML SYR IM ONE (06:30)
[2025-05-22 08:19] LABS: HCT 34.5 % (37.2-46.3); HGB 11.5 g/dL (12.0-15.0); MCH 36.7 pg (27.0-32.0); MCHC 33.3 g/dL (32.0-37.0); MCV 110.2 FL (80.0-97.0); NRBC Per 100 WBC 0 X 10*3/uL (0.00-0.01); Platelet Count 168 X 10*3/uL (140-440); RBC 3.13 X 10*6/uL (4.10-5.20); RDW 14.9 % (11.5-14.5); WBC 5.81 X 10*3/uL (4.50-10.00)
[2025-05-22 08:42] LABS: ALT 44 U/L (8-44); AST 101 U/L (13-35); Albumin 2.4 g/dL (3.8-4.9); Alkaline Phosphatase 71 U/L (41-126); Blood Urea Nitrogen 5.2 mg/dL (9.0-27.0); Calcium 7.4 mg/dL (8.7-10.3); Carbon Dioxide 27.7 mmol/L (21.6-31.8); Chloride 103 mmol/L (96-109); Globulin 1.6 g/dL (1.6-3.3); Glucose 90 mg/dL (70-110); Magnesium 1.8 mg/dL (1.5-2.4); Potassium 4.3 mmol/L (3.5-5.5); Sodium 138 mmol/L (135-145); Total Bilirubin 0.4 mg/dL (0.3-1.2)
[2025-05-22 09:01] LABS: Basophils # (A) 0.05 X 10*3/uL (0.00-0.10); Basophils % (A) 0.9 %; Eosinophils # (A) 0.14 X 10*3/uL (0.04-0.35); Eosinophils % (A) 2.4 %; Lymphocytes # (A) 1.67 X 10*3/uL (0.90-5.00); Lymphocytes % (A) 28.7 %; Macrocytosis (M) 2+ (None Seen); Monocytes # (A) 0.44 X 10*3/uL (0.20-1.00); Monocytes % (A) 7.6 %; Neutrophils # (A) 3.48 X 10*3/uL (1.80-7.70); Neutrophils % (A) 59.9 %
--- NOTE | 2025-05-22 13:57 | P.PN ---
Subjective Progress Note Date: 05/22/25 Dolores Verma is a 59-year-old female patient of Dr. Soria who presented to the ER with concerns of tingling in bilateral hands and feet. Patient has known history of EtOH and in which she states she drank 1 beer per day but stopped 2 weeks ago. Denies any other neurological symptoms. Denies any recent illness. Lab work completed in ER showing sodium level of 128, potassium 2.0, creatinine 0.80, bun 10, magnesium 1.2, calcium 7.3. AST 36, ALT 115 serum alcohol negative. Current vital signs temp 97.9, heart rate 92, respiratory rate 22, blood pressure 131/84 with pulse ox 95% on room air. At this time patient will be admitted magnesium and potassium replace per protocol continue IV fluids. Nephrology services will be consulted. Repeat labs. Patient denies chest pain or shortness of breath. Patient denies nausea vomiting or diarrhea. Patient denies any urinary burning or frequency On 05/21/2025 patient was seen and examined on the medical floor she is alert and oriented x 3 in no apparent distress she is still complaining of tingling in her hands and feet otherwise she denies any complaints there is no fever or chills no headache or dizziness no chest pain no shortness of breath no cough no nausea or vomiting no abdominal pain no diarrhea and no urinary symptoms on admission patient had severe electrolyte imbalance with potassium at 2 sodium 128 and magnesium 1.2. Electrolytes are being corrected possible discharge to home tomorrow On 05/22/2025 patient is alert and oriented x 3. Patient reports she had diarrhea throughout the night also complaining of numbness and tingling to bilateral hands and feet. Will add Neurontin 100 twice daily. Stool for C. difficile ordered repeat electrolytes in a.m. Patient denies chest pain. Patient denies nausea vomiting or diarrhea. Patient denies any urinary burning or frequency Objective - Vital Signs Vital signs: Vital Signs Temp 98 F 05/22/25 12:12 Pulse 91 05/22/25 12:12 Resp 16 05/22/25 12:12 BP 106/70 05/22/25 12:12 Pulse Ox 94 L 05/22/25 12:12 FiO2 Intake & Output 05/21/25 05/22/25 05/22/25 18:59 06:59 18:59 Intake Total 540 Balance 540 Weight 62.596 kg Intake: Oral 540 Other: Voiding Method Toilet Toilet # Voids 2 # Bowel Movements 4 - Exam In general patient is alert and oriented x 3 in no distress HEENT head normocephalic and atraumatic Neck is supple no JVD no goiter no lymphadenopathy no carotid bruit Chest examination is clear to auscultation no crackles no wheezing Cardiac exam reveals regular heart sounds S1 and S2 no gallops no murmurs Abdomen is soft nontender no organomegaly with normal bowel sounds Extremity exam reveals no edema no cyanosis or clubbing Neurological examination reveals no gross focal deficits - Labs CBC & Chem 7: 05/22/25 04:53 05/22/25 04:53 Labs: Abnormal Lab Results - Last 24 Hours (Table) 05/21/25 05/22/25 05/22/25 Range/Units 06:17 04:53 04:53 RBC 3.13 L (4.10-5.20) X 10*6/uL Hgb 11.5 L (12.0-15.0) g/dL Hct 34.5 L (37.2-46.3) % MCV 110.2 H (80.0-97.0) FL MCH 36.7 H (27.0-32.0) pg RDW 14.9 H (11.5-14.5) % Macrocytosis (manual) 2+ A (None Seen) BUN 5.2 L (9.0-27.0) mg/dL Creatinine 0.5 L (0.6-1.5) mg/dL BUN/Creatinine Ratio 10.40 L (12.00-20.00) Ratio Calcium 7.4 L (8.7-10.3) mg/dL AST 101 H (13-35) U/L Total Protein 4.0 L (6.2-8.2) g/dL Albumin 2.4 L (3.8-4.9) g/dL Albumin/Globulin Ratio 1.50 L (1.60-3.17) Ratio Folate 3.10 L (4.40-31.00) ng/mL Assessment and Plan Assessment: Numbness to bilateral hands likely secondary from electrolyte imbalance Hyponatremia Hypokalemia Hypomagnesemia EtOH history. Patient reports she used to drink 1. Beer per day but quit 2 weeks ago Ongoing nicotine dependence. Patient educated greater than 3 minutes on the importance of complete smoking sensation Elevated liver enzymes History of COPD no exacerbation at this time History of hyperlipidemia DVT prophylaxis Lovenox. GI prophylax Protonix nephrology services consulted Continue electrolyte replacement Repeat labs ordered
--- NOTE | 2025-05-22 16:38 | P.PN ---
Subjective Patient is seen for follow-up for hypokalemia and hypomagnesemia. Electrolytes have been replaced Overall feeling better. Maintained on IV fluids. Objective - Vital Signs Vital signs: Vital Signs Temp 98 F 05/22/25 12:12 Pulse 91 05/22/25 12:12 Resp 16 05/22/25 12:12 BP 106/70 05/22/25 12:12 Pulse Ox 94 L 05/22/25 12:12 FiO2 Intake & Output 05/21/25 05/22/25 05/22/25 18:59 06:59 18:59 Intake Total 540 Balance 540 Weight 62.596 kg Intake: Oral 540 Other: Voiding Method Toilet Toilet # Voids 2 # Bowel Movements 4 - Exam Patient is awake, comfortable, no acute distress Examination of the heart S1 and S2 Examination of the lungs bilateral breath sounds are heard Abdomen is soft nontender Examination lower extremity shows no evidence of edema 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 - Labs CBC & Chem 7: 05/22/25 04:53 05/22/25 04:53 Labs: Abnormal Lab Results - Last 24 Hours (Table) 05/21/25 05/22/25 05/22/25 Range/Units 06:17 04:53 04:53 RBC 3.13 L (4.10-5.20) X 10*6/uL Hgb 11.5 L (12.0-15.0) g/dL Hct 34.5 L (37.2-46.3) % MCV 110.2 H (80.0-97.0) FL MCH 36.7 H (27.0-32.0) pg RDW 14.9 H (11.5-14.5) % Macrocytosis (manual) 2+ A (None Seen) BUN 5.2 L (9.0-27.0) mg/dL Creatinine 0.5 L (0.6-1.5) mg/dL BUN/Creatinine Ratio 10.40 L (12.00-20.00) Ratio Calcium 7.4 L (8.7-10.3) mg/dL AST 101 H (13-35) U/L Total Protein 4.0 L (6.2-8.2) g/dL Albumin 2.4 L (3.8-4.9) g/dL Albumin/Globulin Ratio 1.50 L (1.60-3.17) Ratio Folate 3.10 L (4.40-31.00) ng/mL Assessment and Plan Assessment: 1. Hypokalemia from recently started diuretics and hypomagnesemia. 2. Hypomagnesemia from diuretic use. 3. Metabolic alkalosis from volume contraction. 4. Tobacco abuse. 5. Hypovolemic hyponatremia, better with fluids. Plan: Continue to encourage increased oral intake May continue with IV fluids
[2025-05-22] MEDS: GABAPENTIN 100 MG CAP PO SCH (20:16)
[2025-05-23 08:15] VITALS: RESP 20
[2025-05-23 08:15] LABS: Basophils # (A) 0.06 X 10*3/uL (0.00-0.10); Eosinophils # (A) 0.15 X 10*3/uL (0.04-0.35); Eosinophils % (A) 2.5 %; HGB 11.9 g/dL (12.0-15.0); Lymphocytes # (A) 1.76 X 10*3/uL (0.90-5.00); Lymphocytes % (A) 28.9 %; MCH 36.3 pg (27.0-32.0); MCHC 33.1 g/dL (32.0-37.0); MCV 109.8 FL (80.0-97.0); Monocytes # (A) 0.51 X 10*3/uL (0.20-1.00); Monocytes % (A) 8.4 %; NRBC Per 100 WBC 0 X 10*3/uL (0.00-0.01); Neutrophils # (A) 3.58 X 10*3/uL (1.80-7.70); Neutrophils % (A) 58.9 %; Platelet Count 180 X 10*3/uL (140-440); RBC 3.28 X 10*6/uL (4.10-5.20); RDW 14.7 % (11.5-14.5); WBC 6.08 X 10*3/uL (4.50-10.00)
[2025-05-23 09:07] LABS: ALT 45 U/L (8-44); AST 85 U/L (13-35); Albumin 2.6 g/dL (3.8-4.9); Albumin/Globulin Ratio 1.62 Ratio (1.60-3.17); Alkaline Phosphatase 75 U/L (41-126); Blood Urea Nitrogen 4.5 mg/dL (9.0-27.0); Calcium 7.6 mg/dL (8.7-10.3); Carbon Dioxide 26.2 mmol/L (21.6-31.8); Chloride 100 mmol/L (96-109); Globulin 1.6 g/dL (1.6-3.3); Glucose 82 mg/dL (70-110); Potassium 4.1 mmol/L (3.5-5.5); Sodium 136 mmol/L (135-145); Total Bilirubin 0.5 mg/dL (0.3-1.2); Total Protein 4.2 g/dL (6.2-8.2)
[2025-05-23 12:31] VITALS: BP 112/75; PULSE 89; TEMP 98.9
--- NOTE | 2025-05-23 12:55 | P.DS ---
Providers Date of admission: 05/20/25 09:08 Expected date of discharge: 05/23/25 Attending physician: Blaise Weston Consults: 05/20/25 10:33 Consult Physician Routine Consulting Provider: Suzanna Titus Consult Reason/Comments: Electrolyte imbalance Do you want consulting provider notified?: Yes Primary care physician: Steph Chaparro Hospital Course: Diagnosis on discharge: Numbness to bilateral hands likely secondary from electrolyte imbalance Hyponatremia Hypokalemia Hypomagnesemia EtOH history. Patient reports she used to drink 1. Beer per day but quit 2 weeks ago Ongoing nicotine dependence. Patient educated greater than 3 minutes on the importance of complete smoking sensation Elevated liver enzymes History of COPD no exacerbation at this time History of hyperlipidemia Hospital course: Dolores Verma is a 59-year-old female patient of Dr. Soria who presented to the ER with concerns of tingling in bilateral hands and feet. Patient has known history of EtOH and in which she states she drank 1 beer per day but stopped 2 weeks ago. Denies any other neurological symptoms. Denies any recent illness. Lab work completed in ER showing sodium level of 128, potassium 2.0, creatinine 0.80, bun 10, magnesium 1.2, calcium 7.3. AST 36, ALT 115 serum alcohol negative. Current vital signs temp 97.9, heart rate 92, respiratory rate 22, blood pressure 131/84 with pulse ox 95% on room air. At this time patient will be admitted magnesium and potassium replace per protocol continue IV fluids. Nephrology services will be consulted. Repeat labs. Patient denies chest pain or shortness of breath. Patient denies nausea vomiting or diarrhea. Patient denies any urinary burning or frequency On 05/21/2025 patient was seen and examined on the medical floor she is alert and oriented x 3 in no apparent distress she is still complaining of tingling in her hands and feet otherwise she denies any complaints there is no fever or chills no headache or dizziness no chest pain no shortness of breath no cough no nausea or vomiting no abdominal pain no diarrhea and no urinary symptoms on admission patient had severe electrolyte imbalance with potassium at 2 sodium 128 and magnesium 1.2. Electrolytes are being corrected possible discharge to home tomorrow On 05/22/2025 patient is alert and oriented x 3. Patient reports she had diarrhea throughout the night also complaining of numbness and tingling to bilateral hands and feet. Will add Neurontin 100 twice daily. Stool for C. difficile ordered repeat electrolytes in a.m. Patient denies chest pain. Patient denies nausea vomiting or diarrhea. Patient denies any urinary burning or frequency 05/23/2025 patient was seen and examined on the medical floor he is alert and oriented x 3 in no apparent distress there is no fever or chills no headache or dizziness no chest pain no shortness of breath no cough no nausea or vomiting no abdominal pain no diarrhea and no urinary symptoms. Electrolytes were corrected, diarrhea has stopped, sample was negative for C. difficile. Patient is still complaining of numbness in hands and feet, he was started on gabapentin 100 mg p.o. twice daily, testing revealed low folate level he was started on folic acid 1 mg p.o. daily will be discharged to home today she will follow-up with Dr. Hui within 1 week Patient Condition at Discharge: Fair Plan - Discharge Summary Discharge Rx Participant: No New Discharge Prescriptions: New Folic Acid 1 mg PO DAILY 30 Days #30 tab Gabapentin [Neurontin] 100 mg PO BID 30 Days #60 cap Nicotine 14Mg/24Hr Patch [Habitrol] 1 patch TRANSDERM DAILY 30 Days #30 patch Continue Albuterol Inhaler [Ventolin Hfa Inhaler] 2 puff INHALATION RT-Q4H PRN PRN Reason: Shortness Of Breath Budesonide/Formoterol Fumarate [Symbicort 160-4.5 Mcg Inhaler] 2 puff INHALATION RT-BID Multivitamins, Thera [Multivitamin (formulary)] 1 tab PO DAILY Cholecalciferol [Vitamin D3 (125 Mcg = 5000 Iu)] 125 mcg PO HS Atorvastatin [Lipitor] 20 mg PO HS Furosemide [Lasix] 20 mg PO DAILY PRN PRN Reason: Edema Discharge Medication List Albuterol Inhaler [Ventolin Hfa Inhaler] 2 puff INHALATION RT-Q4H PRN 11/27/14 [History] Atorvastatin [Lipitor] 20 mg PO HS 04/26/24 [History] Cholecalciferol [Vitamin D3 (125 Mcg = 5000 Iu)] 125 mcg PO HS 04/26/24 [History] Multivitamins, Thera [Multivitamin (formulary)] 1 tab PO DAILY 04/26/24 [History] Budesonide/Formoterol Fumarate [Symbicort 160-4.5 Mcg Inhaler] 2 puff INHALATION RT-BID 05/20/25 [History] Furosemide [Lasix] 20 mg PO DAILY PRN 05/20/25 [History] Folic Acid 1 mg PO DAILY 30 Days #30 tab 05/23/25 [Rx] Gabapentin [Neurontin] 100 mg PO BID 30 Days #60 cap 05/23/25 [Rx] Nicotine 14Mg/24Hr Patch [Habitrol] 1 patch TRANSDERM DAILY 30 Days #30 patch 05/23/25 [Rx] Follow up Appointment(s)/Referral(s): Steph Chaparro MD [Primary Care Provider] - 1-2 days
[2025-05-23] MEDS: FOLIC ACID 1 MG TAB PO SCH (13:01)
== END 2025-05-23 16:10 | disposition home or self-care (01) | DRG 641 ==
LOC: EC 07:03 → 3SCARD 09:08 → 5NMEDONC 05-21 20:39
PROVIDERS: ADMIT Internal Medicine; ATTEND Internal Medicine
DX: E87.6 Hypokalemia (principal); E86.1 Hypovolemia; E87.3 Alkalosis; J44.9 Chronic obstructive pulmonary disease, unspecified; T50.2X5A Adverse effect of carbonic-anhydrase inhibitors, benzothiadiazides and other diuretics, initial encounter; E87.1 Hypo-osmolality and hyponatremia; R20.0 Anesthesia of skin; E83.42 Hypomagnesemia; E78.5 Hyperlipidemia, unspecified; R74.01 Elevation of levels of liver transaminase levels; F17.210 Nicotine dependence, cigarettes, uncomplicated; E87.8 Other disorders of electrolyte and fluid balance, not elsewhere classified; Z79.51 Long term (current) use of inhaled steroids; Z79.899 Other long term (current) drug therapy; X58.XXXA Exposure to other specified factors, initial encounter; Z98.51 Tubal ligation status; Z88.0 Allergy status to penicillin; Z88.8 Allergy status to other drugs, medicaments and biological substances; Z88.1 Allergy status to other antibiotic agents
CPT/HCPCS: 36415; 80053; 80320; 82607; 82746; 83735; 84100; 85025; 87324; 93005; 94640; 96361; 96365; 96366; 96368; 96372; 99291